=== PATIENT | male | born 1970 | race Caucasian/White ===

== ENCOUNTER → 2017-11-26 12:18 | Outpatient (CLI) | payer MEDICARE, SELFPAY | PROVIDERS: Visit Provider Nurse Practitioner Family | DX: L97.929 Non-pressure chronic ulcer of unspecified part of left lower leg with unspecified severity (principal) | CPT/HCPCS: 87070; 87075; 87077; 87186; 87205 ==

== ENCOUNTER 2017-12-10 15:00 | Outpatient (RCR) | payer MEDICARE, SELFPAY ==
[2017-12-03 15:04] VITALS: BP 139/81; PULSE 85; RESP 20; TEMP 36.7; BMI 94.8
--- NOTE | 2017-12-03 21:45 | PCM.WC.HP ---
(1) Nonhealing ulcer of left lower extremity with fat layer exposed Status: Acute Current Visit: Yes Code(s): L97.922 - Non-pressure chronic ulcer of unspecified part of left lower leg with fat layer exposed (2) Cellulitis of left lower extremity without foot Status: Acute Current Visit: Yes Code(s): L03.116 - Cellulitis of left lower limb (3) MRSA (methicillin resistant staph aureus) culture positive Status: Acute Current Visit: Yes Code(s): Z22.322 - Carrier or suspected carrier of Methicillin resistant Staphylococcus aureus (4) Obesity (BMI 30-39.9) Status: Acute Current Visit: Yes Code(s): E66.9 - Obesity, unspecified (5) Hypertension Status: Chronic Current Visit: No Code(s): I10 - Essential (primary) hypertension History of Present Illness Date of Service: 12/03/17 Chief Complaint: nonhealing ulcer LLE with cellulitis, s/p Incision and drainage, MRSA positive History of Wound: This is a 47-year-old white male who presents to the wound healing center today for a nonhealing ulcer of the left thigh status post incision and drainage on 11/15/2017 at [facility] emergency department. This patient is known to me. The patient presented to the emergency department on 11/15/2017 with complaints of lower extremity pain and an abscess on his left lateral thigh/hip and an incision and drainage was done and he was placed on 10 days of doxycycline. The patient completed the entire course of doxycycline, however the site has still been open and draining clear yellow discharge and is painful. He states that the redness and swelling around it has improved, however it is having delayed healing. A wound culture was done which demonstrated MRSA which was susceptible to Levaquin, however, since starting the Levaquin, the patient has been feeling achy all over. He states he has been feeling fatigued and tired since early November 2017. He however denies any systemic signs of infection such as fever, chills, increasing drainage, redness, warmth, or excessive purulent drainage. His wound care so far has been covering the site with triple antibiotic ointment and gauze. Past Medical History Past Medical History: Chronic Problems (Last Reviewed 11/26/17 @ 11:07 by Mirella Harrison) BPH (benign prostatic hyperplasia) (Chronic) Right one in 2004 Reflux gastritis (Chronic) Hypertension (Chronic) Drug dependence (Chronic) Depressive disorder (Chronic) Hypogonadism (Chronic) Allergies/Adverse Reactions: Allergies bee venom protein (honey bee) Adverse Reaction (Verified 12/03/17 15:22) Shortness of breath Home Medications: Ambulatory Orders Medication Instructions Recorded Citalopram [Celexa] 40 mg PO DAILY 09/18/15 Multivits,Ca,Min/Iron/FA/Lycop 1 ea PO DAILY 09/18/15 [Centrum Men's Tablet] Omeprazole [Prilosec] 20 mg PO DAILY 09/18/15 fluticasone 50 mcg/actuation nasal 2 spray INTRANASAL QDAY 11/25/17 spray,suspension metoprolol succinate ER 100 mg 100 mg PO QDAY 11/25/17 tablet,extended release 24 hr tadalafil 5 mg tablet 5 mg PO ONCE 11/25/17 tramadol 50 mg tablet 50 mg PO Q6H 11/25/17 aquacell silver #3 ea 11/26/17 hydrochlorothiazide 25 mg tablet 25 mg PO QAM #90 tab 11/26/17 syringe with needle, safety 3 mL See Dose Instructions .ROUTE 11/26/17 22 gauge x 1 1/2 .MEDSUPPLY #6 ea testosterone cypionate 200 mg/mL 200 mg IM Q4W #1 ml 11/26/17 intramuscular oil levofloxacin 750 mg tablet 750 mg PO Q24H 10 Days #10 tab 12/01/17 Smoking Status: Former smoker Review of Systems Constitutional: Reports: Malaise, Fatigue. Denies: Chills, Fever, Weight Change Eyes: Denies: Pain, Vision Change HEENT: Denies: Difficulty Hearing, Difficulty Swallowing, Sinus Congestion Cardiovascular: Denies: Chest Pain, Palpitations Respiratory: Denies: Cough, Shortness of Breath Gastrointestinal: Denies: Diarrhea, Nausea, Vomiting Genitourinary: Denies: Dysuria, Hematuria Musculoskeletal: Reports: Muscle pain Skin: Reports: Wounds - See HPI Endocrine: Denies: Heat/ Cold Intolerance, Polydipsia, Polyuria Hematologic/ Lymphatic: Denies: Easy Bruising, Easy Bleeding - Physical Exam Vital Signs Temp Pulse Resp BP 98.1 F 85 20 H 139/81 H 12/03/17 15:04 12/03/17 15:04 12/03/17 15:04 12/03/17 15:04 General: Alert, Oriented x3, Cooperative, No apparent distress HEENT: PERRLA, EOMI Neck: Supple Lungs: Clear to auscultation Cardiovascular: Regular rate, Regular Rhythm Abdomen: Soft, Non Tender Extremities: No clubbing, No cyanosis, No edema, Capillary Refill Less than 3 Seconds, No Calf Tenderness Skin: Ulcer/ Wound - Ulceration of left lateral thigh with moderate amount of adherent slough to the wound bed, no purulent drainage noted, site is tender to touch and there is surrounding erythema and edema to the area, no warmth or lymphangitic streaking however. Consistent with that of local cellulitis at this time. Denies any systemic signs of infection however. Wound Measurements and Assessment WC - Nurse 1 - General Ulcer Measurement Start: 12/03/17 14:38 Freq: Status: Active Protocol: Activity Type Activity Date Activity User E-Sign Co-Sign Detail Recorded Client Recorded Date Recorded By Document 12/03/17 15:04 DL [id number] 12/03/17 15:17 DL 12/03/17 15:04 Wound Center Nurse 1 [Ulcer Assessment] #1 L Hip -Current Size (cm) - Length 2.2 -Current Size (cm) - Width 2 -Current Size (cm) - Depth 1 -Total Square Cm 4.4 -Photo Taken Yes -Tunneling Yes -Tunneling Position (O'clock) 12 -Tunneling Distance (cm) 1 -Maximum Distance #2 (cm) 0.6 -Circular Undermining Yes -Classification - Thickness Full Thickness without Exposed Support Structure -Exudate Amt Medium (34-66%) -Exudate Type Serosanguineous -Wound Margin Distinct, Outline Attached -Granulation Amt None Present (0 %) -Necrosis Amt Large (67-100%) -Necrotic Tissue Type Adherent Slough -Structure Exposed N/A -Texture (Ginger-wound Skin Appearance) Localized Edema -Moisture (Ginger-wound Skin Appearance No Abnormality ) -Color (Ginger-wound Skin Appearance) Erythema -Temperature (Ginger-wound Skin No Abnormality Appearance) (Pt Warm) -Ulcer Cleansing Wound Cleanser -Foul Odor after Cleansing No -Anesthetic Used 4% Lidocaine Solution WC - Nurse 2 - General Ulcer CM Notes Start: 12/03/17 14:38 Freq: Status: Active Protocol: Activity Type Activity Date Activity User E-Sign Co-Sign Detail Recorded Client Recorded Date Recorded By Document 12/03/17 15:59 DV [id number] 12/03/17 16:09 DV 12/03/17 15:59 Wound Center Nurse 2 [Procedure/Treatment] -Time 15:59 -Correct Patient Yes -Correct Side, Site, Position Yes -Correct Procedure Yes -Procedure Performed Yes -Type of Procedure Debridement -Clinical Debridement Subcutaneous -Post Debridement Size (cm) - Length 2.0 -Post Debridement Size (cm) - Width 2.2 -Post Debridement Size (cm) - Depth 2.3 -Total Square Cm 4.40 -Wound/Ulcer Outcome Failed Flap -Ulcer Cleansing Rinsed/ Irrigated with Saline -Foul Odor after Cleansing No -Bioengineered Tissue No -Bleeding Controlled with Pressure -Treatment Response Procedure Tolerated Well [See Physician Procedure note for Specifics] Pain Scale: 0-10 Numeric [Pain] -Is Patient Pain Free? Yes Neurological: Neuro grossly intact Psych/Mental Status: Normal Affect, Alert and oriented to time, place, person, mood and affect Debridement Note Post-Debridement Measurements/Treatment WC - Nurse 2 - General Ulcer CM Notes Start: 12/03/17 14:38 Freq: Status: Active Protocol: Activity Type Activity Date Activity User E-Sign Co-Sign Detail Recorded Client Recorded Date Recorded By Document 12/03/17 15:59 DV [id number] 12/03/17 16:09 DV 12/03/17 15:59 Wound Center Nurse 2 #1 L Hip -Time 15:59 -Correct Patient Yes -Correct Side, Site, Position Yes -Correct Procedure Yes -Procedure Performed Yes -Type of Procedure Debridement -Clinical Debridement Subcutaneous -Post Debridement Size (cm) - Length 2.0 -Post Debridement Size (cm) - Width 2.2 -Post Debridement Size (cm) - Depth 2.3 -Total Square Cm 4.40 -Wound/Ulcer Outcome Failed Flap -Ulcer Cleansing Rinsed/ Irrigated with Saline -Foul Odor after Cleansing No -Bioengineered Tissue No -Bleeding Controlled with Pressure -Treatment Response Procedure Tolerated Well Pain Scale: 0-10 Numeric Is Patient Pain Free? Yes Wound debrided: Left lateral thigh ulcer Laterality: Left Type of Debridement: Excisional debridement Anesthesia Used: 4% Lidocaine Solution, 5% Lidocaine Gel Depth: in the subcutaneous layer, to muscle Percentage of wound debrided: 100 Instrument Used: 7mm curette, Forceps Tissue Removed: Adherent slough and devitalized tissue Severity: Necrosis of Muscle Amount of bleeding with debridement: Mild Bleeding Controlled with: Pressure Patient tolerated procedure well Assessment/Plan Active Problems (Last Reviewed 11/26/17 @ 11:07 by Mirella Harrison) Nonhealing ulcer of left lower extremity with fat layer exposed (Acute) Cellulitis of left lower extremity without foot (Acute) MRSA (methicillin resistant staph aureus) culture positive (Acute) Obesity (BMI 30-39.9) (Acute) Assessment: See above diagnoses Plan: The patient was seen and examined at the wound center today and was updated on the plan of care. He does have a nonhealing ulcer of the left lateral thigh status post incision and drainage complicated by MRSA and cellulitis. A debridement to the muscle was performed today. The patient tolerated the procedure well. The patients wound care will consist of: Packing the wound with Aquacel silver daily and as needed as needed and covering with gauze. Wound cultures were reviewed and demonstrated MRSA with a susceptibility to Bactrim DS and Levaquin, patient was previously started on Levaquin after he completed doxycycline. However due to muscle aches, will change his antibiotic treatment to Bactrim DS twice daily. Patient educated on the importance of diet on wound healing and instructed to increase protein and vitamin C intake. Patient verbalized understanding. Patient will follow up at wound healing center in one week or sooner if needed. Discussed signs and symptoms of worsening cellulitis that require urgent medical attention. Patient is aware of this. If symptoms of general fatigue and muscle aches do not improve by next visit, will check a CBC. This note was generated with [employer] dictation software. It may contain incorrect words, spelling, and punctuation that were not noted in checking the note before signing. Code Visit 111xxx-113xx: 43682 Kirsten musc/fascia 20 sq cm/<
--- NOTE | 2017-12-06 10:56 | HP.PCM_ITS ---
(1) Nonhealing ulcer of left lower extremity with fat layer exposed Status: Acute Current Visit: Yes Code(s): L97.922 - Non-pressure chronic ulcer of unspecified part of left lower leg with fat layer exposed (2) Cellulitis of left lower extremity without foot Status: Acute Current Visit: Yes Code(s): L03.116 - Cellulitis of left lower limb (3) MRSA (methicillin resistant staph aureus) culture positive Status: Acute Current Visit: Yes Code(s): Z22.322 - Carrier or suspected carrier of Methicillin resistant Staphylococcus aureus (4) Obesity (BMI 30-39.9) Status: Acute Current Visit: Yes Code(s): E66.9 - Obesity, unspecified (5) Hypertension Status: Chronic Current Visit: No Code(s): I10 - Essential (primary) hypertension History of Present Illness Date of Service: 12/03/17 Chief Complaint: nonhealing ulcer LLE with cellulitis, s/p Incision and drainage , MRSA positive History of Wound: This is a 47-year-old white male who presents to the wound healing center today for a nonhealing ulcer of the left thigh status post incision and drainage on 11/15/2017 at [facility] emergency department. This patient is known to me. The patient presented to the emergency department on 11/15/2017 with complaints of lower extremity pain and an abscess on his left lateral thigh /hip and an incision and drainage was done and he was placed on 10 days of doxycycline. The patient completed the entire course of doxycycline, however the site has still been open and draining clear yellow discharge and is painful. He states that the redness and swelling around it has improved, however it is having delayed healing. A wound culture was done which demonstrated MRSA which was susceptible to Levaquin, however, since starting the Levaquin, the patient has been feeling achy all over. He states he has been feeling fatigued and tired since early November 2017. He however denies any systemic signs of infection such as fever, chills, increasing drainage, redness , warmth, or excessive purulent drainage. His wound care so far has been covering the site with triple antibiotic ointment and gauze. Past Medical History Past Medical History: Chronic Problems (Last Reviewed 11/26/17 @ 11:07 by Mirella Harrison) BPH (benign prostatic hyperplasia) (Chronic) Right one in 2004 Reflux gastritis (Chronic) Hypertension (Chronic) Drug dependence (Chronic) Depressive disorder (Chronic) Hypogonadism (Chronic) Allergies/Adverse Reactions: Allergies bee venom protein (honey bee) Adverse Reaction (Verified 12/03/17 15:22) Shortness of breath Home Medications: Ambulatory Orders Medication Instructions Recorded Citalopram [Celexa] 40 mg PO DAILY 09/18/15 Multivits,Ca,Min/Iron/FA/Lycop 1 ea PO DAILY 09/18/15 [Centrum Men's Tablet] Omeprazole [Prilosec] 20 mg PO DAILY 09/18/15 fluticasone 50 mcg/actuation nasal 2 spray INTRANASAL QDAY 11/25/17 spray,suspension metoprolol succinate ER 100 mg 100 mg PO QDAY 11/25/17 tablet,extended release 24 hr tadalafil 5 mg tablet 5 mg PO ONCE 11/25/17 tramadol 50 mg tablet 50 mg PO Q6H 11/25/17 aquacell silver #3 ea 11/26/17 hydrochlorothiazide 25 mg tablet 25 mg PO QAM #90 tab 11/26/17 syringe with needle, safety 3 mL See Dose Instructions .ROUTE 11/26/17 22 gauge x 1 1/2 .MEDSUPPLY #6 ea testosterone cypionate 200 mg/mL 200 mg IM Q4W #1 ml 11/26/17 intramuscular oil levofloxacin 750 mg tablet 750 mg PO Q24H 10 Days #10 tab 12/01/17 Smoking Status: Former smoker Review of Systems Constitutional: Reports: Malaise, Fatigue. Denies: Chills, Fever, Weight Change Eyes: Denies: Pain, Vision Change HEENT: Denies: Difficulty Hearing, Difficulty Swallowing, Sinus Congestion Cardiovascular: Denies: Chest Pain, Palpitations Respiratory: Denies: Cough, Shortness of Breath Gastrointestinal: Denies: Diarrhea, Nausea, Vomiting Genitourinary: Denies: Dysuria, Hematuria Musculoskeletal: Reports: Muscle pain Skin: Reports: Wounds - See HPI Endocrine: Denies: Heat/ Cold Intolerance, Polydipsia, Polyuria Hematologic/ Lymphatic: Denies: Easy Bruising, Easy Bleeding - Physical Exam Vital Signs Temp Pulse Resp BP 98.1 F 85 20 H 139/81 H 12/03/17 15:04 12/03/17 15:04 12/03/17 15:04 12/03/17 15:04 General: Alert, Oriented x3, Cooperative, No apparent distress HEENT: PERRLA, EOMI Neck: Supple Lungs: Clear to auscultation Cardiovascular: Regular rate, Regular Rhythm Abdomen: Soft, Non Tender Extremities: No clubbing, No cyanosis, No edema, Capillary Refill Less than 3 Seconds, No Calf Tenderness Skin: Ulcer/ Wound - Ulceration of left lateral thigh with moderate amount of adherent slough to the wound bed, no purulent drainage noted, site is tender to touch and there is surrounding erythema and edema to the area, no warmth or lymphangitic streaking however. Consistent with that of local cellulitis at this time. Denies any systemic signs of infection however. Wound Measurements and Assessment WC - Nurse 1 - General Ulcer Measurement Start: 12/03/17 14:38 Freq: Status: Active Protocol: Activity Type Activity Date Activity User E-Sign Co-Sign Detail Recorded Client Recorded Date Recorded By Document 12/03/17 15:04 DL [id number] 12/03/17 15:17 DL 12/03/17 15:04 Wound Center Nurse 1 [Ulcer Assessment] #1 L Hip -Current Size (cm) - Length 2.2 -Current Size (cm) - Width 2 -Current Size (cm) - Depth 1 -Total Square Cm 4.4 -Photo Taken Yes -Tunneling Yes -Tunneling Position (O'clock) 12 -Tunneling Distance (cm) 1 -Maximum Distance #2 (cm) 0.6 -Circular Undermining Yes -Classification - Thickness Full Thickness without Exposed Support Structure -Exudate Amt Medium (34-66%) -Exudate Type Serosanguineous -Wound Margin Distinct, Outline Attached -Granulation Amt None Present (0 %) -Necrosis Amt Large (67-100%) -Necrotic Tissue Type Adherent Slough -Structure Exposed N/A -Texture (Ginger-wound Skin Appearance) Localized Edema -Moisture (Ginger-wound Skin Appearance No Abnormality ) -Color (Ginger-wound Skin Appearance) Erythema -Temperature (Ginger-wound Skin No Abnormality Appearance) (Pt Warm) -Ulcer Cleansing Wound Cleanser -Foul Odor after Cleansing No -Anesthetic Used 4% Lidocaine Solution WC - Nurse 2 - General Ulcer CM Notes Start: 12/03/17 14:38 Freq: Status: Active Protocol: Activity Type Activity Date Activity User E-Sign Co-Sign Detail Recorded Client Recorded Date Recorded By Document 12/03/17 15:59 DV [id number] 12/03/17 16:09 DV 12/03/17 15:59 Wound Center Nurse 2 [Procedure/Treatment] -Time 15:59 -Correct Patient Yes -Correct Side, Site, Position Yes -Correct Procedure Yes -Procedure Performed Yes -Type of Procedure Debridement -Clinical Debridement Subcutaneous -Post Debridement Size (cm) - Length 2.0 -Post Debridement Size (cm) - Width 2.2 -Post Debridement Size (cm) - Depth 2.3 -Total Square Cm 4.40 -Wound/Ulcer Outcome Failed Flap -Ulcer Cleansing Rinsed/ Irrigated with Saline -Foul Odor after Cleansing No -Bioengineered Tissue No -Bleeding Controlled with Pressure -Treatment Response Procedure Tolerated Well [See Physician Procedure note for Specifics] Pain Scale: 0-10 Numeric [Pain] -Is Patient Pain Free? Yes Neurological: Neuro grossly intact Psych/Mental Status: Normal Affect, Alert and oriented to time, place, person, mood and affect Debridement Note Post-Debridement Measurements/Treatment WC - Nurse 2 - General Ulcer CM Notes Start: 12/03/17 14:38 Freq: Status: Active Protocol: Activity Type Activity Date Activity User E-Sign Co-Sign Detail Recorded Client Recorded Date Recorded By Document 12/03/17 15:59 DV [id number] 12/03/17 16:09 DV 12/03/17 15:59 Wound Center Nurse 2 #1 L Hip -Time 15:59 -Correct Patient Yes -Correct Side, Site, Position Yes -Correct Procedure Yes -Procedure Performed Yes -Type of Procedure Debridement -Clinical Debridement Subcutaneous -Post Debridement Size (cm) - Length 2.0 -Post Debridement Size (cm) - Width 2.2 -Post Debridement Size (cm) - Depth 2.3 -Total Square Cm 4.40 -Wound/Ulcer Outcome Failed Flap -Ulcer Cleansing Rinsed/ Irrigated with Saline -Foul Odor after Cleansing No -Bioengineered Tissue No -Bleeding Controlled with Pressure -Treatment Response Procedure Tolerated Well Pain Scale: 0-10 Numeric Is Patient Pain Free? Yes Wound debrided: Left lateral thigh ulcer Laterality: Left Type of Debridement: Excisional debridement Anesthesia Used: 4% Lidocaine Solution, 5% Lidocaine Gel Depth: in the subcutaneous layer, to muscle Percentage of wound debrided: 100 Instrument Used: 7mm curette, Forceps Tissue Removed: Adherent slough and devitalized tissue Severity: Necrosis of Muscle Amount of bleeding with debridement: Mild Bleeding Controlled with: Pressure Patient tolerated procedure well Assessment/Plan Active Problems (Last Reviewed 11/26/17 @ 11:07 by Mirella Harrison) Nonhealing ulcer of left lower extremity with fat layer exposed (Acute) Cellulitis of left lower extremity without foot (Acute) MRSA (methicillin resistant staph aureus) culture positive (Acute) Obesity (BMI 30-39.9) (Acute) Assessment: See above diagnoses Plan: The patient was seen and examined at the wound center today and was updated on the plan of care. He does have a nonhealing ulcer of the left lateral thigh status post incision and drainage complicated by MRSA and cellulitis. A debridement to the muscle was performed today. The patient tolerated the procedure well. The patients wound care will consist of: Packing the wound with Aquacel silver daily and as needed as needed and covering with gauze. Wound cultures were reviewed and demonstrated MRSA with a susceptibility to Bactrim DS and Levaquin, patient was previously started on Levaquin after he completed doxycycline. However due to muscle aches, will change his antibiotic treatment to Bactrim DS twice daily. Patient educated on the importance of diet on wound healing and instructed to increase protein and vitamin C intake. Patient verbalized understanding. Patient will follow up at wound healing center in one week or sooner if needed. Discussed signs and symptoms of worsening cellulitis that require urgent medical attention. Patient is aware of this. If symptoms of general fatigue and muscle aches do not improve by next visit, will check a CBC. This note was generated with [employer] dictation software. It may contain incorrect words, spelling, and punctuation that were not noted in checking the note before signing. Code Visit 111xxx-113xx: 09190 Kirsten musc/fascia 20 sq cm/<
== END 2017-12-10 23:59 ==
LOC: WC 15:00
PROVIDERS: Family Provider Family Medicine; PCP Family Medicine; Visit Provider Nurse Practitioner Family
DX: L97.922 Non-pressure chronic ulcer of unspecified part of left lower leg with fat layer exposed (principal); L03.116 Cellulitis of left lower limb; Z22.322 Carrier or suspected carrier of Methicillin resistant Staphylococcus aureus; E66.9 Obesity, unspecified; I10 Essential (primary) hypertension; Z68.33 Body mass index [BMI] 33.0-33.9, adult
CPT/HCPCS: 11043; 99203; G0463

== ENCOUNTER → 2018-02-10 07:05 | Outpatient (CLI) | payer MEDICARE, SELFPAY ==
--- NOTE | 2018-02-10 09:36 | STRESSREP ---
Stress Test Report Pharmacologic myocardial perfusion stress test. 47-year-old man with a history of shortness of breath. Stress protocol: Resting EKG demonstrates normal sinus rhythm with rate of 86 bpm normal intervals and noted resting blood pressure is 140/78 mmHg. 0.4 mg regadenoson was infused per usual protocol followed by rapid intravenous saline flush injection continuous EKG monitoring was performed. The maximum heart rate attained was 98 bpm which was 56% of maximum predicted heart rate maximum workload was 1 metabolic equivalent. At rest there were no ST or T-wave changes noted suggest abnormal flow reserve at peak infusion no ST or T-wave changes were noted suggest abnormal flow reserve. The resting blood pressure is 140/78 with a final blood pressure 124/78. No clinical angina was noted. Myocardial perfusion protocol. Next 14.9 mCi of technetium 99m sestamibi was injected at rest. 0.4 mg regadenoson was infused per usual protocol peak infusion 44.8 mCi of technetium 99m sestamibi was injected stress images were obtained stress and rest images were reconstructed and compared in the short axis vertical long horizontal long axis. Gated images were also obtained. Perfusion SPECT analysis: Review of the stress images demonstrate normal uptake of tracer noted in all areas of the myocardium the resting images similarly demonstrate normal uptake of tracer noted in all areas of myocardium. There is some GI attenuation artifact noted no significant abnormalities however are noted. Gated SPECT analysis: The gated ejection fraction is noted to be 77%. Conclusion: Normal pharmacologic myocardial perfusion stress test. Preserved ejection fraction.
== END ==
PROVIDERS: Family Provider Family Medicine; PCP Family Medicine; Visit Provider Nurse Practitioner Family
DX: R06.09 Other forms of dyspnea (principal); E66.9 Obesity, unspecified; I10 Essential (primary) hypertension; R61 Generalized hyperhidrosis
CPT/HCPCS: 78452; 93017; A9500; A4216; J2785

== ENCOUNTER → 2018-02-19 22:50 | Outpatient (CLI) | payer MEDICARE, SELFPAY | PROVIDERS: Family Provider Family Medicine; PCP Family Medicine; Visit Provider Nurse Practitioner Family | DX: G47.10 Hypersomnia, unspecified (principal) | CPT/HCPCS: 95810 ==

== ENCOUNTER → 2018-03-08 11:27 | Outpatient (CLI) | payer MEDICARE, SELFPAY ==
[2018-03-08 11:55] VITALS: PULSE 100; PULSE 101; PULSE 85; PULSE 89; PULSE 90; PULSE 94; PULSE 97; O2SAT 91; O2SAT 92; O2SAT 93
--- NOTE | 2018-03-08 14:08 | PCM.PSN.6M ---
PSN 6 Minute Walk Test - 6 Minute Walk Test 6 Minute Walk Test: 6 Minute Walk Test PSN:6-Minute Walk Test Start: 03/08/18 11:55 Freq: Status: Active Protocol: RESP.6MINW Document 03/08/18 11:55 GARETH (Rec: 03/08/18 11:58 GARETH [id number]) 6 Minute Walk Test Date Performed 03/08/18 Time Performed 11:40 Height 5 ft 10 in Weight: 147.418 kg Weight in Pounds 325.[address]: Sharon Muhammad Assistive device used: None Pre-test Oxygen Delivery Method Room Air Pulse Ox (%) 93 Pulse Rate (60-100 beats/min) 85 Dyspnea Caitlin Scale (0-10) 0.5 Exertion Caitlin Scale (6-20) 6 1st minute Oxygen Delivery Method Room Air Pulse Ox (%) 93 Pulse Rate (60-100 beats/min) 90 2nd minute Oxygen Delivery Method Room Air Pulse Ox (%) 91 Pulse Rate (60-100 beats/min) 94 3rd minute Oxygen Delivery Method Room Air Pulse Ox (%) 92 Pulse Rate (60-100 beats/min) 97 4th minute Oxygen Delivery Method Room Air Pulse Ox (%) 91 Pulse Rate (60-100 beats/min) 100 5th minute Oxygen Delivery Method Room Air Pulse Ox (%) 91 Pulse Rate (60-100 beats/min) 101 H 6th minute Oxygen Delivery Method Room Air Pulse Ox (%) 91 Pulse Rate (60-100 beats/min) 101 H Dyspnea Caitlin Scale (0-10) 5 Exertion Caitlin Scale (6-20) 13 Post-test Oxygen Delivery Method Room Air Pulse Ox (%) 93 Pulse Rate (60-100 beats/min) 89 Full Laps Walked 11 Partial Lap, Number of Tiles Walked 0 Total Distance Walked (ft) 649 - Interpretation Interpretation: The patient was able to ambulate only 649 feet over the course of 6 minutes on room air with no assistive devices or breaks. The patient was noted to have a decreased baseline saturation of 93%, but only desaturated to 91% with exertion. These findings are consistent with a respiratory limitation exercise tolerance. - Recommendations Recommendations: No supplemental oxygen is indicated at this time. However, patient will need to be followed closely given level of baseline desaturation.
== END ==
PROVIDERS: Family Provider Family Medicine; PCP Family Medicine; Visit Provider Nurse Practitioner Acute Care
DX: R06.02 Shortness of breath (principal)
CPT/HCPCS: 94618

== ENCOUNTER → 2018-05-31 20:00 | Outpatient (CLI) | payer MEDICARE, SELFPAY | PROVIDERS: Family Provider Family Medicine; PCP Family Medicine; Visit Provider Nurse Practitioner Acute Care | DX: G47.33 Obstructive sleep apnea (adult) (pediatric) (principal) | CPT/HCPCS: 95811 ==

== ENCOUNTER → 2018-06-15 12:04 | Outpatient (CLI) | payer MEDICARE, SELFPAY ==
[2018-06-15 11:30] VITALS: BMI 45.8
== END ==
PROVIDERS: Family Provider Family Medicine; PCP Family Medicine; Visit Provider Nurse Practitioner Acute Care
DX: G47.33 Obstructive sleep apnea (adult) (pediatric) (principal)

== ENCOUNTER → 2018-06-17 18:35 | Outpatient (CLI) | payer MEDICARE, SELFPAY ==
[2018-06-15 11:30] VITALS: BMI 45.8
--- NOTE | 2018-06-17 18:50 | CT_ITS ---
STUDY: CTA CHEST REASON FOR EXAM: Male, 47 years old. Shortness of breath for several weeks. Worsening today. Low oxygen saturation. RADIATION DOSAGE (If Supplied By Facility): CTDIvol = ( 11.74 ) mGy, DLP = ( 763.82 ) mGycm TECHNIQUE: The examination was performed with the intravenous administration of 100ML ml of Isovue 370 contrast material. Post-processing of the angiographic images was performed, with multiplanar reformation and 3D reconstruction. Individualized dose optimization techniques were used for this CT. COMPARISON: None. FINDINGS: Normal enhancement of the main pulmonary artery and right and left pulmonary arteries. There is a question of small nonobstructing embolus in the medial right lower lobe pulmonary arteries as seen on images 148 and 131 of series 2. This however could be due to scatter artifact from the patient's right arm being along the chest wall There is no other demonstrated pulmonary embolism. Normal thoracic aorta and visualized great vessels. There is no demonstrated aortic dissection. Normal heart and pericardium. Normal mediastinum. Normal hilar regions. Normal visualized trachea and bronchi. The lungs are well expanded. Normal pulmonary parenchyma. Normal pleura. Normal chest wall structures. There are degenerative changes of the right shoulder and thoracic spine without fracture. Normal visualized upper abdomen. CT/CTA Chest W/WO Contrast IMPRESSION: 1. Small nonobstructing right lower lobe pulmonary emboli versus scatter artifact from the patient's arm. No other pulmonary emboli are seen. 2. No aortic dissection or aneurysm. 3. No acute pulmonary disease. 4. Degenerative changes of the thoracic spine and right shoulder. N.B. : The above information has been verbally conveyed by Tapan Sharpe DO to Lazaro Horton MD, on 06/17/2018 19:51:28 (ET). Electronically Signed: Tapan Sharpe DO at 19:34 EST Tel [phone], Service support ,
== END ==
PROVIDERS: Family Provider Family Medicine; PCP Family Medicine; Visit Provider Nurse Practitioner Acute Care
DX: G47.33 Obstructive sleep apnea (adult) (pediatric) (principal)
CPT/HCPCS: 71275; Q9967; A4216

== ENCOUNTER 2018-06-17 20:16 | Emergency (ER) | payer MEDICARE, SELFPAY ==
[2018-06-15 11:30] VITALS: BMI 45.8
[2018-06-17 20:17] VITALS: BP 135/85; PULSE 84; RESP 19; TEMP 36.4; O2SAT 89; BMI 44.6
--- NOTE | 2018-06-17 20:34 | EKG12_ITS ---
Test Reason : Blood Pressure : / mmHG Vent. Rate : 087 BPM Atrial Rate : 087 BPM P-R Int : 186 ms QRS Dur : 090 ms QT Int : 372 ms P-R-T Axes : 039 052 012 degrees QTc Int : 447 ms Normal sinus rhythm Possible Left atrial enlargement Borderline ECG Confirmed by REN SMALLWOOD, ZACHERY ([id number]), content editor PITER MOSLEY ([id number]) on 06/21/2018 2:48:03 PM Referred By: AYDE Confirmed By:ZACHERY MCCLURE MD
[2018-06-17 20:41] VITALS: O2SAT 95
[2018-06-17] MEDS: Ipratropium/Albuterol Sulfate 3 ML AMPUL.NEB INHALATION (20:49)
[2018-06-17] MEDS: 0.9% Normal Saline 1,000 ML 150 ML IV (20:49)
[2018-06-17] MEDS: MethylPREDNISolone 125 MG/2 ML Vial IV (20:49)
[2018-06-17 21:14] LABS: Absolute Lymphocyte Count 2.54 X10^3/ul (0.83-4.51); Absolute Neutrophil Count 7.8 X10^3/uL (2.0-7.7); Basophil# 0.04 X10^3/uL; Basophil% 0.3 % (0-1); Eosinophil# 0.86 X10^3/uL; Eosinophils% 6.9 % (0-5); Hematocrit 48.6 % (40-54); Hemoglobin 16.4 g/dl (13.0-16.5); Lymphocyte # 2.54 X10^3/ul (4.0); Lymphocyte % 20.3 % (19-41); Mean Corp Hgb Conc 33.7 g/gl (32-36); Mean Corpuscular Hgb 28.8 pg (27.0-32.0); Mean Corpuscular Volume 85.3 fL (80-94); Mean Platelet Vol. 8.8 fl (6.2-12.0); Monocyte# 1.28 X10^3/uL; Monocyte% 10.2 % (0-10); Neutrophil # 7.77 X10^3/uL (2.7-7.7); Neutrophil % 61.9 % (47-70); Platelet Count 230 K/mm3 (150-450); RBC Distribution Width CV 14.9 % (11.6-14.6); RBC Distribution Width SD 44.9 fl (35.1-43.9); White Blood Count 12.5 K/mm3 (4.4-11.0)
[2018-06-17 21:16] LABS: POSITIVE COUNT NO; POSITIVE DIFFERENTIAL NO; POSITIVE MORPHOLOGY NO
[2018-06-17 21:21] VITALS: PULSE 80; RESP 18
[2018-06-17 21:25] LABS: Anion Gap 8 (5-15); BUN 27 mg/dL (7-18); BUN/Creat Ratio 23.7 RATIO (10-20); Calcium,Total 8.4 mg/dL (8.5-10.1); Chloride 102 mmol/L (98-107); Creatinine, Serum 1.14 mg/dL (0.70-1.30); EST Glomerular Filtration Rate 73 mL/min (>60); Est Glom Filt Rate - Afr Amer 89 mL/min (>60); Estimated Creatinine Clearance 86.24 ml/min; Glucose 126 mg/dL (74-106); Potassium 3.2 mmol/L (3.5-5.1); Sodium Level 138 mmol/L (136-145)
[2018-06-17 21:51] LABS: BNP,B-Type NATRIURETIC PEPTIDE 98.9 pg/mL (0-100)
--- NOTE | 2018-06-17 22:20 | ED.DCSUM_ITS ---
- ER Visit Summary Date of Service: 06/17/18 Chief Complaint: [Shortness of breath] History of Present Illness: The patient is a 47 M [presents to the emergency department complaint of shortness of breath that started 3 or 4 months ago. Patient states that he had a wound on his left hip that resulted from some sort of bite that he became necrotic. Patient states eventually that healed up with antibiotics. Ever since that time patient's had increased shortness of breath and exertional dyspnea. 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 CT scan was done as an outpatient and was interpreted by radiologist as small nonobstructing right lower lobe pulmonary emboli versus scatter artifact from the patient's arm no other pulmonary emboli are seen. Patient denies any significant chest discomfort. Patient denies recent travel or surgery. He does have a history of hypertension.] Physical Examination: [HEENT-PERRLA, EOMI. Cranial nerves II through XII grossly intact. TMs clear. Mucous membranes moist. No adenopathy. Cardiovascular-regular rate and rhythm without murmur or ectopy Lungs-patient has expiratory wheezes bilaterally with decreased breath sounds bilaterally. Patient has mild tachypnea. No accessory muscle use or retractions. Abdomen-normoactive bowel sounds, soft, nontender, no rebound or rigidity, no peritoneal signs. Extremities-intact ?4, normal range of motion, normal pulses, atraumatic] Test Results: [D-dimer performed showed a level of 0.50. EKG obtained shows sinus rhythm with a ventricular rate of 87 bpm with left atrial enlargement. CBC with differential showed a white count of 12.5, hemoglobin 16, hematocrit 48.6, platelets 230. Chemistries unremarkable other than slightly depressed potassium at 3.2. Troponin is less than 0.015.] Emergency Department Course and Treatment: [Patient was medicated with DuoNeb aerosol as well as Solu-Medrol 125 mill grams IV. Patient's O2 saturation on arrival to ER was 89% on room air.] Treatment Plan: [I recommended admission for the patient for further workup and evaluation of suspected pulmonary emboli and his dyspnea with hypoxemia. Patient is refusing admission at this time and will sign out AGAINST MEDICAL ADVICE. Patient understands risk of respiratory failure, , or disability. I discussed case with patient's primary care physician who recommended anticoagulation at this time therefore patient was started on Eliquis. Patient also will be started on prednisone and doxycycline. Patient advised to return if increasing shortness of breath, severe chest pain, or condition should worsen anyway. His primary care physician will arrange an outpatient repeat CT scan of his chest and attempt to delineate if the findings on the initial CT of pulmonary emboli is accurate versus artifact.] Disposition: [Discharged to home stable condition AGAINST MEDICAL ADVICE] Impression: [Asthmatic bronchitis Pulmonary emboli Hypoxemia] This note was generated with [employer] dictation software. It may contain incorrect words, spelling, and punctuation that were not noted in review of the chart prior to signing ED Disposition - Plan for ED Patient: Chief Complaint: Shortness of Breath Referrals: Zhang Horton DO [Primary Care Provider] -
--- NOTE | 2018-06-17 22:20 | ED.DEP ---
ED Disposition - Plan for ED Patient: Chief Complaint: Shortness of Breath Instructions: ED Bronchitis Asthmatic, Discharge Instructions for Pulmonary Embolism Prescriptions: Apixaban [Eliquis] 5 mg PO BID #74 tab Doxycycline 100 mg PO BID #20 cap predniSONE tablet 20 mg PO BID #10 tab Referrals: Zhang Horton DO [Primary Care Provider] - 1-2 Days if not improving
[2018-06-17 22:32] VITALS: BP 113/72; PULSE 83; RESP 20; O2SAT 94
[2018-06-17] MEDS: Doxycycline 100 MG CAPSULE PO (22:35)
[2018-06-17] MEDS: APIXABAN 5 MG TABLET 10 MG PO (22:36)
[2018-06-25 20:06] LABS: Protein C Antigen 95 % (60-150); Protein C, Functional 118 % (73-180)
[2018-06-28 11:23] LABS: Anti-Cardiolipin Ab, IgG, Qn < 9 GPL U/mL (0-14); Anti-Cardiolipin Ab, IgM, Qn 10 MPL U/mL (0-12); Anti-Thrombin 3 AG, Immunol 105 % (72-124); Antithrombin 3 Function 104 % (75-135); Antithrombin 3 Function 110 % (75-135); Beta-2-Glycoprotein I IgA <9 (0-25); Beta-2-Glycoprotein I IgG <9 (0-20); Beta-2-Glycoprotein I IgM <9 (0-32)
== END 2018-06-17 22:41 | disposition home or self-care (01) ==
LOC: ED 21:13
PROVIDERS: Emergency Provider Emergency Medicine; Family Provider Family Medicine; PCP Family Medicine
DX: J45.909 Unspecified asthma, uncomplicated (principal); I26.99 Other pulmonary embolism without acute cor pulmonale; R09.02 Hypoxemia; I10 Essential (primary) hypertension; I51.7 Cardiomegaly; Z53.21 Procedure and treatment not carried out due to patient leaving prior to being seen by health care provider; Z79.899 Other long term (current) drug therapy; G47.33 Obstructive sleep apnea (adult) (pediatric)
CPT/HCPCS: 36415; 71275; 80048; 81240; 81241; 83880; 84484; 85025; 85300; 85301; 85302; 85303; 85379; 86146; 86147; 93005; 94640; 96361; 96374; 99285; J7030; Q9967; A4216

== ENCOUNTER → 2018-07-22 13:21 | Outpatient (CLI) | payer MEDICARE, SELFPAY ==
[2018-06-15 11:30] VITALS: BMI 45.8
--- NOTE | 2018-07-22 14:45 | PFTCOMP ---
COMPLETE PULMONARY FUNCTION TEST INTERPRETATION Brief HPI: Patient is a 47 year old male, currently under the care of Sharon Muhammad, who presents to [facility] for complete pulmonary function tests secondary to diagnosis of dyspnea. Respiratory therapist reports good effort and reproducible results. Interpretation: Forced expiration spirometry shows a mild large airways obstructive ventilatory defect with an FEV1 of 71% predicted. There is some improvement following bronchodilators, but this does not reach a significant bronchodilator response by strict ATS criteria. Spirograms are of good quality and plateau slowly, indicating slowly emptying areas of the lungs. The respiratory flow volume loop shows decreased expiratory flow rates at high lung volumes consistent with small airways obstruction. Lung volumes by body plethysmography show an elevated total lung capacity at 8.48 L, 123% predicted. FRC and RV are elevated out of proportion. Lung volume measurements are consistent with hyperinflation and air-trapping. Diffusion capacity by carbon monoxide is normal at 96% predicted. The airway resistance is elevated. No previous pulmonary function tests were available for review. Impression: Irreversible mild large airways obstructive ventilatory defect resulting in air trapping with hyperinflation. No previous studies available for comparison
--- NOTE | 2018-07-22 14:50 | PFTCOMP_ITS ---
COMPLETE PULMONARY FUNCTION TEST INTERPRETATION Brief HPI: Patient is a 47 year old male, currently under the care of Sharon Muhammad, who presents to [facility] for complete pulmonary function tests secondary to diagnosis of dyspnea. Respiratory therapist reports good effort and reproducible results. Interpretation: Forced expiration spirometry shows a mild large airways obstructive ventilatory defect with an FEV1 of 71% predicted. There is some improvement following bro nchodilators, but this does not reach a significant bronchodilator response by strict ATS criteria. Spirograms are of good quality and plateau slowly, indicating slowly emptying areas of the lungs. The respiratory flow volume loop shows decreased expiratory flow rates at high lung volumes consistent with small airways obstruction. Lung volumes by body plethysmography show an elevated total lung capacity at 8.48 L, 123% predicted. FRC and RV are elevated out of proportion. Lung volume measurements are consistent with hyperinflation and air-trapping. Diffusion capacity by carbon monoxide is normal at 96% predicted. The airway resistance is elevated. No previous pulmonary function tests were available for review. Impression: Irreversible mild large airways obstructive ventilatory defect resulting in air trapping with hyperinflation. No previous studies available for comparison
== END ==
PROVIDERS: Family Provider Family Medicine; PCP Family Medicine; Referring Provider Nurse Practitioner Acute Care; Visit Provider Nurse Practitioner Acute Care
DX: R06.02 Shortness of breath (principal)
CPT/HCPCS: 94060; 94726; 94729

== ENCOUNTER → 2018-12-23 | Outpatient (CLI) | payer MEDICARE, SELFPAY ==
[2018-12-09 11:14] VITALS: BMI 44.6
--- NOTE | 2018-12-23 13:10 | ECHOD_ITS ---
Reason For Study: DYSPNEA/SOB Procedure This was a 2D Doppler, Color Flow transthoracic echocardiogram. The study was technically difficult. Due to obesity, deep respirations/SOB & GAVIN (could not stay awake for exam). Definity deferred due to TR peak gradient of 97mmHg. Left Ventricle Normal LV size. Concentric left ventricular hypertrophy. Left ventricular systolic function is normal. The estimated ejection fraction is 60 %. Diastolic function is indeterminate. No regional wall motion abnormalities noted. Right Ventricle Severely dilated right ventricle. Severe global right ventricular systolic dysfunction. Atria Normal left atrium. The right atrium is mildly enlarged. Mitral Valve There is no mitral valve stenosis. No mitral valve insufficiency. Tricuspid Valve No significant tricuspid stenosis. Mild tricuspid valve insufficiency. Severe pulmonary hypertension. Pulmonary artery systolic pressure is 105 mmHg. Aortic Valve Trisinus/trileaflet aortic valve. Mild diffuse aortic valve thickening. There is no aortic stenosis. Trivial aortic valve insufficiency. Pulmonic Valve There is no pulmonic valvular stenosis. No pulmonic valve insufficiency identified. Great Vessels Normal aortic root. Pericardium/Pleural No pericardial effusion. MMode/2D Measurements & Calculations LVIDd: 4.2 cm IVSd: 1.3 cm Ao root diam: 3.3 cm LVIDs: 2.7 cm LVPWd: 1.5 cm RVDd: 5.0 cm FS: 35.9 % LAV(MOD-bp): 43.5 ml LA A4 area: 15.5 cm2 LA dimension(2D): 3.8 cm LAV(MOD-bp) Indexed: 17.1 ml/m2 LAV(MOD-sp2): 37.7 ml LAV(MOD-sp4): 37.0 ml RA A4 area: 21.3 cm2 Time Measurements MV dec time: 0.15 sec Doppler Measurements & Calculations MV E max andriy: 68.2 cm/sec Lat Peak E' Andriy: 16.9 cm/sec Med Peak E' Andriy: 5.5 cm/sec MV A max andriy: 84.0 cm/sec E/E' lat: 4.0 E/E' med: 12.4 MV E/A: 0.81 Ao V2 max: 188.1 cm/sec LV V1 max: 118.0 cm/sec PA V2 max: 121.8 cm/sec Ao max P.2 mmHg LV V1 max P.6 mmHg TR max andriy: 489.2 cm/sec TR max P.7 mmHg Interpretation Summary Concentric left ventricular hypertrophy. Left ventricular systolic function is normal. The estimated ejection fraction is 60 %. Diastolic function is indeterminate. Severe global right ventricular systolic dysfunction. Severely dilated right ventricle. Mild tricuspid valve insufficiency. Severe pulmonary hypertension. Pulmonary artery systolic pressure is 105 mmHg. Ordering Physician: Zhang Horton Referring Physician: Zhang Horton Performed By: Bettina Jimenez, EDWIGE, RVT
== END | disposition home or self-care (01) ==
LOC: CVS 13:09
PROVIDERS: Family Provider Family Medicine; PCP Family Medicine; Referring Provider Family Medicine; Visit Provider Family Medicine
DX: I26.99 Other pulmonary embolism without acute cor pulmonale (principal)
CPT/HCPCS: 93306